=== PATIENT | male | born 1990 | race Caucasian/White ===

== ENCOUNTER 2019-10-31 22:53 | Emergency (ER) | payer OTHER ==
[2019-10-31 23:51] LABS: BLOOD UREA NITROGEN,BUN 18 mg/dL (7.0-18.0); CARBON DIOXIDE,CO2 19.8 mmol/L (21.0-32.0); CHLORIDE,CL 104 mmol/L (98-107); GLUCOSE RANDOM 87 mg/dL (74-106); SODIUM,NA 141 mmol/L (136-148)
[2019-11-01] MEDS ORDERED: Iopamidol 755 Mg/ML 100 ML Bottle IVPUSH ONE (00:12)
--- NOTE | 2019-11-01 00:49 | CT ---
INDICATION: Shortness of breath, syncope TECHNIQUE: CT chest pulmonary PE protocol acquired with 100 cc Isovue 370 IV contrast. COMPARISON: None FINDINGS: Cardiovascular structures: Exam is limited by patient body habitus. No large central or segmental pulmonary embolism is seen. The subsegmental branches of the pulmonary artery cannot be adequately evaluated with this exam. Heart size is normal. No sign of aneurysm in the thoracic aorta. Mediastinum and meg: No mass or adenopathy. Lungs: Diffuse ground-glass opacities throughout the lungs. Pleura and pericardium: No effusions. Chest wall and axilla: No mass or adenopathy. Upper abdomen: Status post gastric sleeve procedure. The spleen measures 15.0 cm in length Bones: No significant findings. IMPRESSION: Exam is limited by patient body habitus. No large central or segmental pulmonary embolism is seen. The subsegmental branches of the pulmonary artery cannot be adequately evaluated with this exam. Diffuse ground-glass opacities may represent pneumonia. Status post gastric sleeve procedure. Splenomegaly. Please note that all CT scans at this facility use dose modulation, iterative reconstruction, and/or weight-based dosing when appropriate to reduce radiation dose to as low as reasonably achievable. Dictated by Kayy Robledo MD @ Nov 01 2019 12:39AM Signed by Dr. Kayy Robledo @ Nov 01 2019 12:47AM
--- NOTE | 2019-11-01 01:34 | EDM.PDOC ---
ED [facility] GENERAL MEDICAL PROBLEM - General Chief Complaint: Syncope Stated Complaint: FELL UNCONSCIOUS Time Seen by Provider: 10/31/19 23:30 Source of Information: Reports: Patient, Family History Limitations: Reports: No Limitations - History of Present Illness INITIAL COMMENTS - FREE TEXT/NARRATIVE: Patient is a 29-year-old male with past medical history of morbid obesity and is status post gastric sleeve surgery 10 days ago. Reports syncopal episode while showering, prior to arrival. Patient reports feeling dizzy for 2 minutes before falling to the ground. Patient states he lost consciousness for 1 minute and then woke up without any confusion, headache, vomiting. Patient states he may have struck his head however he is unsure. Patient is currently without any symptoms. Patient denies any abdominal pain, nausea, vomiting. Patient reports compliance with dietary regimen prescribed by surgeon. Patient denies any chest pain, shortness of breath, history of cardiovascular disease. Patient has no fevers or recent illnesses. In addition to that documented in the HPI above, the additional ROS was obtained : Constitutional: Denies fevers or chills Eyes: Denies vision changes ENMT: Denies sore throat CV: Denies chest pain Resp: Denies SOB GI: Denies vomiting or diarrhea : Denies painful urination MSK: Denies recent trauma Skin: Denies new rashes Neuro: Denies new numbness or tingling or weakness Endocrine: Denies unexpected weight loss Heme: Denies bleeding disorders I have reviewed the triage vital signs Const: Well nourished, well developed, appears stated age Eyes: PERRL, no conjunctival injection HENT: NCAT, Neck supple without meningismus . Head is atraumatic normocephalic. CV: RRR, Warm, well-perfused extremities RESP: CTAB, Unlabored respiratory effort GI: soft, non-tender, non-distended, no masses. Surgical site and incisions well-healed MSK: Right calf tenderness without swelling. No gross deformities appreciated Skin: Warm, dry. 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 Sensation and motor function of extremities grossly intact. Psych: Appropriate mood and affect - Related Data Allergies Allergy/AdvReac Type Severity Reaction Status Date / Time No Known Allergies Allergy Verified 10/31/19 23:00 Home Meds: Home Meds Pantoprazole [ProTONIX] 40 mg PO DAILY 10/31/19 [History] allopurinoL [Zyloprim] 300 mg PO ASDIRECTED 10/31/19 [History] Past Medical History HEENT History: Reports: None Cardiovascular History: Reports: None Respiratory History: Reports: None Gastrointestinal History: Reports: None Genitourinary History: Reports: None Musculoskeletal History: Reports: None Neurological History: Reports: None Psychiatric History: Reports: Depression Endocrine/Metabolic History: Reports: Obesity/BMI 30+ Hematologic History: Reports: None Immunologic History: Reports: None Oncologic (Cancer) History: Reports: None Dermatologic History: Reports: None - Infectious Disease History Infectious Disease History: Reports: Chicken Pox - Past Surgical History Head Surgeries/Procedures: Reports: None HEENT Surgical History: Reports: None Respiratory Surgical History: Reports: None GI Surgical History: Reports: Bariatric Procedure Social & Family History - Family History HEENT: Reports: None Cardiac: Reports: None Endocrine/Metabolic: Reports: Diabetes, type II - Tobacco Use Smoking Status *Q: Heavy Tobacco Smoker Years of Tobacco use: 11 Packs/Tins Daily: 0.3 - Recreational Drug Use Recreational Drug Use: No - Living Situation & Occupation Living situation: Reports: Occupation: Employed ED ROS GENERAL - Review of Systems Review Of Systems: See Below ED EXAM, GENERAL - Physical Exam Exam: See Below Course - Vital Signs Last Recorded V/S: Last Vital Signs Temp 36.8 C 10/31/19 22:58 Pulse 76 11/01/19 00:32 Resp 16 11/01/19 00:32 BP 109/71 11/01/19 00:32 Pulse Ox 98 11/01/19 00:32 - Orders/Labs/Meds Orders: Active Orders 24 hr Category Date Time Status Blood Glucose Check, Bedside [RC] ONETIME Care 10/31/19 23:00 Active EKG 12 Lead [EKG Documentation Completion] [RC] STAT Care 10/31/19 23:11 Active Labs: Laboratory Tests 10/31/19 10/31/19 10/31/19 Range/Units 23:00 23:00 23:00 WBC 9.91 (4.0-11.0) K/uL RBC 5.45 (4.50-5.90) M/uL Hgb 16.9 (13.0-17.0) g/dL Hct 49.4 (38.0-50.0) % MCV 90.6 (80.0-98.0) fL MCH 31.0 (27.0-32.0) pg MCHC 34.2 (31.0-37.0) g/dL RDW Std Deviation 43.1 (28.0-62.0) fl RDW Coeff of Soraida 13 (11.0-15.0) % Plt Count 226 (150-400) K/uL MPV 11.00 (7.40-12.00) fL Neut % (Auto) 56.2 (48.0-80.0) % Lymph % (Auto) 32.5 (16.0-40.0) % Gibson % (Auto) 9.0 (0.0-15.0) % Eos % (Auto) 2.1 (0.0-7.0) % Baso % (Auto) 0.2 (0.0-1.5) % Neut # (Auto) 5.6 (1.4-5.7) K/uL Lymph # (Auto) 3.2 H (0.6-2.4) K/uL Gibson # (Auto) 0.9 H (0.0-0.8) K/uL Eos # (Auto) 0.2 (0.0-0.7) K/uL Baso # (Auto) 0.0 (0.0-0.1) K/uL Nucleated RBC % 0.0 /100WBC Nucleated RBCs # 0 K/uL INR 1.07 Sodium 141 (136-148) mmol/L Potassium 4.0 (3.5-5.1) mmol/L Chloride 104 (98-107) mmol/L Carbon Dioxide 19.8 L (21.0-32.0) mmol/L BUN 18 (7.0-18.0) mg/dL Creatinine 1.0 (0.8-1.3) mg/dL Est Cr Clr Drug Dosing 109.98 mL/min Estimated GFR (MDRD) > 60.0 ml/min Glucose 87 (74-106) mg/dL Calcium 10.1 (8.5-10.1) mg/dL Total Bilirubin 0.8 (0.2-1.0) mg/dL AST 32 (15-37) IU/L ALT 115 H (14-63) IU/L Alkaline Phosphatase 70 (46-116) U/L Troponin I < 0.050 (0.000-0.056) ng/mL Total Protein 8.8 H (6.4-8.2) g/dL Albumin 4.7 (3.4-5.0) g/dL Globulin 4.1 H (2.6-4.0) g/dL Albumin/Globulin Ratio 1.2 (0.9-1.6) Meds: Medications Discontinued Medications Generic Name Dose Route Start Last Admin Trade Name Freq PRN Reason Stop Dose Admin Iopamidol 100 ml 11/01/19 00:12 Isovue-370 (76%) IVPUSH 11/01/19 00:13 ONETIME ONE Departure - Departure Time of Disposition: :31 Disposition: Home, Self-Care 01 Condition: Good Clinical Impression: Syncope Instructions: Syncope, [id number] Referrals: John Vega MD [Primary Care Provider] - Forms: ED Department Discharge Sepsis Event Note - Evaluation Sepsis Screening Result: No Definite Risk - Focused Exam Vital Signs: Vital Signs Temp Pulse Resp BP Pulse Ox 11/01/19 00:32 76 16 109/71 98 10/31/19 22:58 36.8 C 86 18 149/77 H 97 Date Exam was Performed: 11/01/19 Time Exam was Performed: :28 - My Orders Last 24 Hours: My Active Orders 10/31/19 23:00 Blood Glucose Check, Bedside [RC] ONETIME 10/31/19 23:11 EKG 12 Lead [EKG Documentation Completion] [RC] STAT - Assessment/Plan Last 24 Hours: My Active Orders 10/31/19 23:00 Blood Glucose Check, Bedside [RC] ONETIME 10/31/19 23:11 EKG 12 Lead [EKG Documentation Completion] [RC] STAT Assessment:: Patient is a 29-year-old male presenting with a chief complaint of syncope. Patient had no high risk features as the etiology of this syncope. The emergency department, patient vital signs within normal limits. Patient's EKG demonstrates normal sinus rhythm. However, he did demonstrate [id number]. Patient' s physical exam does not demonstrate any evidence of major head trauma and he does not have any symptoms concerning for major head trauma. Therefore, CT scan of the head was deferred. Patient's fingerstick and labs were within normal limits. Patient had CT Ellen of the chest to rule out pulmonary embolism. CT of the chest was negative. CT of the chest did demonstrate some findings concerning for pneumonia. However, patient does not have any symptoms of pneumonia. Patient educated on these findings and instructed to follow-up with these findings as an outpatient. At this point, major life-threatening cause of syncope have been ruled out. Likely cause of syncope is dehydration versus idiopathic. Other considerations were made for cardiac arrhythmia and pulmonary embolism. Patient instructed that he may need a Holter monitor by cardiology however this will be determined after evaluation by his PCP. Patient given strict return precautions and will follow-up as an outpatient.
[2019-11-01 02:28] VITALS: BP 136/78; PULSE 68
[2019-11-01] MEDS ORDERED: Iopamidol 755 MG/ML 200 ML Multipack Bottle IVPUSH ONE (05:48)
== END 2019-11-01 01:46 | disposition home or self-care (01) ==
LOC: MW.ED 22:53
DX: R55 Syncope and collapse (principal); F17.210 Nicotine dependence, cigarettes, uncomplicated; Z79.899 Other long term (current) drug therapy
CPT/HCPCS: 36415; 71275; 80053; 84484; 85025; 85610; 93005; 99284; Q9967

== ENCOUNTER 2020-01-17 19:44 | Emergency (ER) | payer OTHER ==
[2020-01-17 20:02] VITALS: BP 128/80; PULSE 81
[2020-01-17] MEDS ORDERED: Ketorolac 60 MG/2 ML SDV IM ONE (20:25)
--- NOTE | 2020-01-17 20:27 | EDM.PDOC ---
ED HPI GENERAL MEDICAL PROBLEM - General Chief Complaint: Lower Extremity Injury/Pain Stated Complaint: CANNOT PUT PRESSURE ON LEFT ANKLE Time Seen by Provider: 01/17/20 20:25 Source of Information: Reports: Patient History Limitations: Reports: No Limitations - History of Present Illness INITIAL COMMENTS - FREE TEXT/NARRATIVE: HISTORY AND PHYSICAL: History of present illness: Patient is a 29-year-old male presents to the ED with complaint of left ankle pain. Patient states he has a history of gout and has had it in his left great toe and left ankle. He states he is suppose to be taking allopurinol daily and colchicine for flares but has been out of the medication. He denies any injury or trauma and denies fevers or chills and has no other complaints at this time. Review of systems: As per history of present illness and below otherwise all systems reviewed and negative. Past medical history: As per history of present illness and as reviewed below otherwise noncontributory. Surgical history: As per history of present illness and as reviewed below otherwise noncontributory. Social history: No reported history of drug or alcohol abuse. Family history: As per history of present illness and as reviewed below otherwise noncontributory. Physical exam: General: Patient sitting comfortably in no acute distress and nontoxic appearing HEENT: Atraumatic, normocephalic, pupils reactive, negative for conjunctival pallor or scleral icterus, mucous membranes moist, throat clear, neck supple, nontender, trachea midline. No meningeal signs. Lungs: Clear to auscultation, breath sounds equal bilaterally, chest nontender. Heart: S1S2, regular, negative for clicks, rubs, or overt murmur. Abdomen: Soft, nondistended, nontender. Negative for masses or hepatosplenomegaly. Negative for costovertebral tenderness. No rigidity, rebound , guarding. Pelvis: Stable nontender. Genitourinary: Deferred. Rectal: Deferred. Extremities: Mild swelling to the left lateral ankle with slight warmth to palpation. negative for cords or calf pain. Neurovascular unremarkable. Neuro: Awake, alert, oriented. Cranial nerves II through XII unremarkable. Cerebellum unremarkable. Motor and sensory unremarkable throughout. Exam nonfocal. Notes: Diagnostics: Declined x-ray or labs Therapeutics: Toradol 60mg IM Prescriptions: Colchicine Impression: Acute gout Plan: Take colchicine as prescribed Follow up with primary care provider Return to ED as needed as discussed Definitive disposition and diagnosis as appropriate pending reevaluation and review of above. Left ankle Pain Score (Numeric/FACES): 5 - Related Data Allergies Allergy/AdvReac Type Severity Reaction Status Date / Time No Known Allergies Allergy Verified 01/17/20 20:00 Home Meds: Home Meds Pantoprazole [ProTONIX] 40 mg PO DAILY 10/31/19 [History] allopurinoL [Zyloprim] 300 mg PO ASDIRECTED 10/31/19 [History] Colchicine 0.6 mg PO DAILY 7 Days #7 capsule 01/17/20 [Rx] Past Medical History HEENT History: Reports: None Cardiovascular History: Reports: None Respiratory History: Reports: None Gastrointestinal History: Reports: None Genitourinary History: Reports: None Musculoskeletal History: Reports: Gout Neurological History: Reports: None Psychiatric History: Reports: Depression Endocrine/Metabolic History: Reports: Obesity/BMI 30+ Hematologic History: Reports: None Immunologic History: Reports: None Oncologic (Cancer) History: Reports: None Dermatologic History: Reports: None - Infectious Disease History Infectious Disease History: Reports: Chicken Pox - Past Surgical History Head Surgeries/Procedures: Reports: None HEENT Surgical History: Reports: None Cardiovascular Surgical History: Reports: None Respiratory Surgical History: Reports: None GI Surgical History: Reports: Bariatric Procedure Male Surgical History: Reports: None Endocrine Surgical History: Reports: None Neurological Surgical History: Reports: None Musculoskeletal Surgical History: Reports: None Oncologic Surgical History: Reports: None Dermatological Surgical History: Reports: None Social & Family History - Family History HEENT: Reports: None Cardiac: Reports: None Endocrine/Metabolic: Reports: Diabetes, type II - Caffeine Use Caffeine Use: Reports: None - Recreational Drug Use Recreational Drug Use: No - Living Situation & Occupation Living situation: Reports: Occupation: Employed Review of Systems - Review of Systems Review Of Systems: Comprehensive ROS is negative, except as noted in HPI. ED EXAM, GENERAL - Physical Exam Exam: See Below (see dictation) Course - Vital Signs Last Recorded V/S: Last Vital Signs Temp 97.3 F 01/17/20 20:00 Pulse 81 01/17/20 20:00 Resp 18 01/17/20 20:00 BP 128/80 01/17/20 20:00 Pulse Ox 97 01/17/20 20:00 - Orders/Labs/Meds Meds: Medications Discontinued Medications Generic Name Dose Route Start Last Admin Trade Name Bell PRN Reason Stop Dose Admin Ketorolac Tromethamine 60 mg 01/17/20 20:25 Toradol IM 01/17/20 20:26 ONETIME ONE Departure - Departure Time of Disposition: 20:29 Disposition: Home, Self-Care 01 Condition: Good Clinical Impression: Acute gout - Discharge Information Referrals: PCP,None [Primary Care Provider] - Forms: ED Department Discharge Additional Instructions: The following information is given to patients seen in the emergency department who are being discharged to home. This information is to outline your options for follow-up care. We provide all patients seen in our emergency department with a follow-up referral. The need for follow-up, as well as the timing and circumstances, are variable depending upon the specifics of your emergency department visit. If you don't have a primary care physician on staff, we will provide you with a referral. We always advise you to contact your personal physician following an emergency department visit to inform them of the circumstance of the visit and for follow-up with them and/or the need for any referrals to a consulting specialist. The emergency department will also refer you to a specialist when appropriate. This referral assures that you have the opportunity for follow-up care with a specialist. All of these measure are taken in an effort to provide you with optimal care, which includes your follow-up. Under all circumstances we always encourage you to contact your private physician who remains a resource for coordinating your care. When calling for follow-up care, please make the office aware that this follow-up is from your recent emergency room visit. If for any reason you are refused follow-up, please contact the [facility] at and asked to speak to the emergency department charge nurse. [facility] [address] [place] [id number] [facility] [address] [place] [id number] Take colchicine as prescribed Follow up with primary care provider Return to ED as needed as discussed Sepsis Event Note - Evaluation Sepsis Screening Result: No Definite Risk - Focused Exam Vital Signs: Vital Signs Temp Pulse Resp BP Pulse Ox 01/17/20 20:00 97.3 F 81 18 128/80 97 Date Exam was Performed: 01/17/20 Time Exam was Performed: 20:27
== END 2020-01-17 20:58 | disposition home or self-care (01) ==
LOC: MW.ED 19:44
DX: M10.9 Gout, unspecified (principal)
CPT/HCPCS: 96372; 99283; J1885

== ENCOUNTER 2020-01-31 06:41 | Emergency (ER) | payer OTHER ==
[2020-01-31] MEDS ORDERED: Sodium Chloride 0.9% 1,000 ML IV ONE (08:05)
[2020-01-31] MEDS ORDERED: Meclizine 25 MG Tab PO ONE (08:48)
--- NOTE | 2020-01-31 08:50 | EDM.PDOC ---
ED HPI GENERAL MEDICAL PROBLEM - General Chief Complaint: General Stated Complaint: DIZZINESS Time Seen by Provider: 01/31/20 07:50 Source of Information: Reports: Patient History Limitations: Reports: No Limitations - History of Present Illness INITIAL COMMENTS - FREE TEXT/NARRATIVE: HISTORY AND PHYSICAL: History of present illness: Patient is a 29-year-old male who presents to the ED today with concern of dizziness episodes that occurred just prior to arrival to the ED. Patient states when he woke up he felt slightly dizzy so he got in the bath. Patient states when he got out of the bath he felt as if the "room was spinning." Patient states that after this he felt nauseous and had 2 episodes of vomiting. Patient states that the episode lasted a couple minutes and then resolved. Patient states that he did have a gastric sleeve done in October and since then has had a few episodes of the dizziness that he describes but states that this 1 was the most severe making him vomit. Patient denies any head injury or trauma. Patient denies any abdominal pain. Patient denies any other symptoms or concerns. Patient denies fever, chills, chest pain, shortness of breath, or cough. Denies headache, neck stiff ness, change in vision, syncope, or near syncope. Denies abdominal pain, diarrhea, constipation, or dysuria. Has not noted any blood in urine or stool. Patient has been eating and drinking appropriately. Review of systems: As per history of present illness and below otherwise all systems reviewed and negative. Past medical history: As per history of present illness and as reviewed below otherwise noncontributory. Surgical history: As per history of present illness and as reviewed below otherwise noncontributory. Social history: See social history for further information Family history: As per history of present illness and as reviewed below otherwise noncontributory. Physical exam: Exam is limited due to body habitus. General: Patient is alert, oriented, and in no acute distress. Patient laying comfortably on exam table. HEENT: Atraumatic, normocephalic, pupils equal and reactive bilaterally, negative for conjunctival pallor or scleral icterus, mucous membranes dry, TMs normal bilaterally, throat clear, neck supple, nontender, trachea midline. No drooling or trismus noted. No meningeal signs. No hot potato voice noted. Lungs: Clear to auscultation, breath sounds equal bilaterally, chest nontender. Heart: S1S2, regular rate and rhythm without overt murmur Abdomen: Obese, soft, nondistended, nontender. Negative for masses or hepatosplenomegaly. Negative for costovertebral tenderness. Pelvis: Stable nontender. Genitourinary: Deferred. Rectal: Deferred. Skin: Intact, warm, dry. No lesions or rashes noted. Extremities: Atraumatic, negative for cords or calf pain. Neurovascular unremarkable. Neuro: Awake, alert, oriented. Cranial nerves II through XII unremarkable. Cerebellum unremarkable. Motor and sensory unremarkable throughout. Exam nonfocal. Notes: HEART score 1. Low risk. Discussed importance for follow-up with a primary care provider. Voices understanding and is agreeable to plan of care. Denies any further questions or concerns at this time. Diagnostics: EKG, CBC, CMP, UA, chest x-ray, troponin, head CT, orthostatic vitals Therapeutics: NS, Meclizine Prescription: Meclizine Impression: Vertigo Dizziness Plan: 1. Take medication as prescribed. Encourage small but frequent sips of fluid to prevent dehydration. 2. Follow-up with a primary care provider as discussed. Return to the ED as needed and as discussed. Definitive disposition and diagnosis as appropriate pending reevaluation and review of above. left ankle Pain Score (Numeric/FACES): 6 - Related Data Allergies Allergy/AdvReac Type Severity Reaction Status Date / Time No Known Allergies Allergy Verified 01/31/20 06:57 Home Meds: Home Meds Pantoprazole [ProTONIX] 40 mg PO DAILY 10/31/19 [History] allopurinoL [Zyloprim] 300 mg PO ASDIRECTED 10/31/19 [History] Colchicine 0.6 mg PO DAILY 7 Days #7 capsule 01/17/20 [Rx] Meclizine [Antivert] 25 mg PO BID PRN #15 tab 01/31/20 [Rx] Past Medical History HEENT History: Reports: None Cardiovascular History: Reports: None Respiratory History: Reports: None Gastrointestinal History: Reports: None Genitourinary History: Reports: None Musculoskeletal History: Reports: Gout Neurological History: Reports: None Psychiatric History: Reports: Depression Endocrine/Metabolic History: Reports: Obesity/BMI 30+ 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 Hematologic History: Reports: None Immunologic History: Reports: None Oncologic (Cancer) History: Reports: None Dermatologic History: Reports: None - Infectious Disease History Infectious Disease History: Reports: None - Past Surgical History Head Surgeries/Procedures: Reports: None HEENT Surgical History: Reports: None Cardiovascular Surgical History: Reports: None Respiratory Surgical History: Reports: None GI Surgical History: Reports: Bariatric Procedure Male Surgical History: Reports: None Endocrine Surgical History: Reports: None Neurological Surgical History: Reports: None Musculoskeletal Surgical History: Reports: None Oncologic Surgical History: Reports: None Dermatological Surgical History: Reports: None Social & Family History - Family History Family Medical History: Noncontributory HEENT: Reports: None Cardiac: Reports: None Endocrine/Metabolic: Reports: Diabetes, type II - Caffeine Use Caffeine Use: Reports: None - Recreational Drug Use Recreational Drug Use: No - Living Situation & Occupation Living situation: Reports: Occupation: Employed ED ROS GENERAL - Review of Systems Review Of Systems: Comprehensive ROS is negative, except as noted in HPI. ED EXAM, GENERAL - Physical Exam Exam: See Below (see dictation) Course - Vital Signs Last Recorded V/S: Last Vital Signs Temp 96.8 F L 01/31/20 06:57 Pulse 82 01/31/20 09:35 Resp 15 01/31/20 09:35 BP 122/84 01/31/20 09:35 Pulse Ox 98 01/31/20 09:35 Orthostatic Blood Pressure [ 122/84 Standing] Orthostatic Blood Pressure [ 131/82 Sitting] Orthostatic Blood Pressure [ 138/73 Supine] - Orders/Labs/Meds Orders: Active Orders 24 hr Category Date Time Status EKG Documentation Completion [RC] STAT Care 01/31/20 08:05 Active Orthostatic Vital Signs [RC] ASDIRECTED Care 01/31/20 08:10 Active UA RFX KATLIN AND CULT IF INDIC [URIN] Stat Lab 01/31/20 08:05 Ordered Labs: Laboratory Tests 01/31/20 01/31/20 Range/Units 09:09 09:09 WBC 10.66 (4.0-11.0) K/uL RBC 5.26 (4.50-5.90) M/uL Hgb 16.2 (13.0-17.0) g/dL Hct 49.0 (38.0-50.0) % MCV 93.2 (80.0-98.0) fL MCH 30.8 (27.0-32.0) pg MCHC 33.1 (31.0-37.0) g/dL RDW Std Deviation 46.6 (28.0-62.0) fl RDW Coeff of Soraida 14 (11.0-15.0) % Plt Count 213 (150-400) K/uL MPV 10.90 (7.40-12.00) fL Neut % (Auto) 77.9 (48.0-80.0) % Lymph % (Auto) 11.1 L (16.0-40.0) % Rock % (Auto) 9.9 (0.0-15.0) % Eos % (Auto) 0.8 (0.0-7.0) % Baso % (Auto) 0.3 (0.0-1.5) % Neut # (Auto) 8.3 H (1.4-5.7) K/uL Lymph # (Auto) 1.2 (0.6-2.4) K/uL Rock # (Auto) 1.1 H (0.0-0.8) K/uL Eos # (Auto) 0.1 (0.0-0.7) K/uL Baso # (Auto) 0.0 (0.0-0.1) K/uL Nucleated RBC % 0.0 /100WBC Nucleated RBCs # 0 K/uL Sodium 142 (136-148) mmol/L Potassium 4.9 (3.5-5.1) mmol/L Chloride 107 (98-107) mmol/L Carbon Dioxide 26.7 (21.0-32.0) mmol/L BUN 18 (7.0-18.0) mg/dL Creatinine 1.2 (0.8-1.3) mg/dL Est Cr Clr Drug Dosing 91.65 mL/min Estimated GFR (MDRD) > 60.0 ml/min Glucose 85 (74-106) mg/dL Calcium 9.6 (8.5-10.1) mg/dL Total Bilirubin 0.6 (0.2-1.0) mg/dL AST 23 (15-37) IU/L ALT 50 (14-63) IU/L Alkaline Phosphatase 82 (46-116) U/L Troponin I < 0.050 (0.000-0.056) ng/mL Total Protein 7.9 (6.4-8.2) g/dL Albumin 4.2 (3.4-5.0) g/dL Globulin 3.7 (2.6-4.0) g/dL Albumin/Globulin Ratio 1.1 (0.9-1.6) Meds: Medications Discontinued Medications Generic Name Dose Route Start Last Admin Trade Name Freq PRN Reason Stop Dose Admin Sodium Chloride 1,000 mls @ 999 mls/hr 01/31/20 08:05 01/31/20 09:33 Normal Saline IV 01/31/20 09:05 999 mls/hr BOLUS ONE Administration Meclizine HCl 25 mg 01/31/20 08:48 01/31/20 09:32 Antivert PO 01/31/20 08:49 25 mg ONETIME ONE Administration Departure - Departure Time of Disposition: 10:07 Disposition: Home, Self-Care 01 Clinical Impression: Vertigo, Dizziness - Discharge Information Prescriptions: Meclizine [Antivert] 25 mg PO BID PRN #15 tab PRN Reason: Dizziness Referrals: John Vega MD [Primary Care Provider] - Forms: ED Department Discharge Additional Instructions: The following information is given to patients seen in the emergency department who are being discharged to home. This information is to outline your options for follow-up care. We provide all patients seen in our emergency department with a follow-up referral. The need for follow-up, as well as the timing and circumstances, are variable depending upon the specifics of your emergency department visit. If you don't have a primary care physician on staff, we will provide you with a referral. We always advise you to contact your personal physician following an emergency department visit to inform them of the circumstance of the visit and for follow-up with them and/or the need for any referrals to a consulting specialist. The emergency department will also refer you to a specialist when appropriate. This referral assures that you have the opportunity for follow-up care with a specialist. All of these measure are taken in an effort to provide you with optimal care, which includes your follow-up. Under all circumstances we always encourage you to contact your private physician who remains a resource for coordinating your care. When calling for follow-up care, please make the office aware that this follow-up is from your recent emergency room visit. If for any reason you are refused follow-up, please contact the [facility] Emergency Department at and asked to speak to the emergency department charge nurse. [facility] Primary [facility] [address] [place] [address] [facility] [address] [place] [id number] . Take medication as prescribed. Encourage small but frequent sips of fluid to prevent dehydration. 2. Follow-up with a primary care provider as discussed. Return to the ED as needed and as discussed. Sepsis Event Note - Evaluation Sepsis Screening Result: No Definite Risk - Focused Exam Vital Signs: Vital Signs Temp Pulse Resp BP Pulse Ox 01/31/20 09:35 82 15 122/84 98 01/31/20 07:50 76 15 110/54 L 98 01/31/20 07:20 74 17 110/60 97 01/31/20 06:57 96.8 F L 74 18 116/62 98 Date Exam was Performed: 01/31/20 Time Exam was Performed: 10:06 - My Orders Last 24 Hours: My Active Orders 01/31/20 08:05 EKG Documentation Completion [RC] STAT UA RFX KATLIN AND CULT IF INDIC [URIN] Stat 01/31/20 08:10 Orthostatic Vital Signs [RC] ASDIRECTED - Assessment/Plan Last 24 Hours: My Active Orders 01/31/20 08:05 EKG Documentation Completion [RC] STAT UA RFX KATLIN AND CULT IF INDIC [URIN] Stat 01/31/20 08:10 Orthostatic Vital Signs [RC] ASDIRECTED
[2020-01-31 09:41] LABS: BLOOD UREA NITROGEN,BUN 18 mg/dL (7.0-18.0); CARBON DIOXIDE,CO2 26.7 mmol/L (21.0-32.0); CHLORIDE,CL 107 mmol/L (98-107); GLUCOSE RANDOM 85 mg/dL (74-106); POTASSIUM,K 4.9 mmol/L (3.5-5.1); SODIUM,NA 142 mmol/L (136-148)
--- NOTE | 2020-01-31 09:47 | CT ---
INDICATION: Dizziness, vertiginous syndrome. TECHNIQUE: CT head without contrast. COMPARISON: None FINDINGS: No acute intracranial hemorrhage, mass effect or midline shift is identified. A 15 millimeter rounded soft tissue density in the inferior right maxillary sinus is partially visualized and most compatible to a retention cyst. The visualized paranasal sinuses and mastoid air cells are otherwise normally aerated. No temporal bone abnormality is seen. IMPRESSION: 1. No acute intracranial hemorrhage/abnormality. 2. Right maxillary sinus retention cyst. Please note that all CT scans at this facility use dose modulation, iterative reconstruction, and/or weight-based dosing when appropriate to reduce radiation dose to as low as reasonably achievable. Dictated by Pino Cardenas MD @ Jan 31 2020 9:40AM Signed by Dr. Pino Cardenas @ Jan 31 2020 9:46AM
--- NOTE | 2020-01-31 09:50 | CR ---
INDICATION: Dizziness, cough TECHNIQUE: Chest 1 view. COMPARISON: None FINDINGS: Cardiovascular and mediastinum: Heart size and vasculature are normal in caliber and appearance. Mediastinum is within normal limits. Lungs and pleural space: Lungs are clear. No sign of infiltrate or mass. No sign of pleural effusion. No pneumothorax. Bones and soft tissues: No significant findings. IMPRESSION: Unremarkable chest. Dictated by Pino Cardenas MD @ Jan 31 2020 9:39AM Signed by Dr. Pino Cardenas @ Jan 31 2020 9:47AM
[2020-01-31 11:44] VITALS: BP 124/72; PULSE 58
== END 2020-01-31 11:45 | disposition home or self-care (01) ==
LOC: MW.ED 06:41
DX: R42 Dizziness and giddiness (principal); M10.9 Gout, unspecified; E66.9 Obesity, unspecified; Z68.43 Body mass index [BMI] 50.0-59.9, adult; Z79.899 Other long term (current) drug therapy
CPT/HCPCS: 36415; 70450; 71045; 80053; 82962; 84484; 85025; 93005; 96360; 99284; A9270; J7030

== ENCOUNTER 2020-03-07 16:45 | Emergency (ER) | payer OTHER ==
[2020-03-07] MEDS ORDERED: Ketorolac 60 MG/2 ML SDV IM ONE (17:23)
[2020-03-07] MEDS ORDERED: predniSONE 10 MG Tab PO ONE (17:24)
[2020-03-07] MEDS ORDERED: Colchicine 0.6 MG Tab PO ONE (17:24)
--- NOTE | 2020-03-07 17:35 | EDM.PDOC ---
ED HPI GENERAL MEDICAL PROBLEM - General Chief Complaint: Lower Extremity Injury/Pain Stated Complaint: GOUT IN RIGHT FOOT Time Seen by Provider: 03/07/20 17:18 Source of Information: Reports: Patient History Limitations: Reports: No Limitations - History of Present Illness INITIAL COMMENTS - FREE TEXT/NARRATIVE: HISTORY AND PHYSICAL: History of present illness: Patient is a 29-year-old male who presents to the emergency room today with complaints of gout in his right great toe and requesting medication refill. He states he has a longstanding history of gout and typically takes allopurinol daily. He has been out of this medication for a while as he has not been able to get in to his primary care provider. Typically he has gotten flares in his left great toe, but today he has pain and tenderness to the right great toe. Recent injury or trauma. Patient denies any fever, chills, headache, change in vision, syncope or near syncope. Denies any chest pain, back pain, shortness of breath or cough. Denies any abdominal pain, nausea, vomiting, diarrhea, constipation or dysuria. Has not noted any blood in urine or stool. Patient has been eating and drinking appropriately. Review of systems: As per history of present illness and below otherwise all systems reviewed and negative. Past medical history: As per history of present illness and as reviewed below otherwise noncontributory. Surgical history: As per history of present illness and as reviewed below otherwise noncontributory. Social history: See social history for further information Family history: As per history of present illness and as reviewed below otherwise noncontributory. Physical exam: General: Well-developed and well-nourished 29-year-old male. Alert and oriented. Nontoxic-appearing and in no acute distress. HEENT: Atraumatic, normocephalic, pupils equal and reactive bilaterally, negative for conjunctival pallor or scleral icterus, mucous membranes moist, nontender, trachea midline. No drooling or trismus noted. No meningeal signs. No hot potato voice noted. Lungs: Clear to auscultation, breath sounds equal bilaterally. Heart: S1S2, regular rate and rhythm without overt murmur Abdomen: Soft, obese, nontender. Skin: SEE EXTREMITY. Otherwise skin is intact, warm, dry. No lesions or rashes noted. Extremities: Atraumatic, moves all extremities per self without difficulty or deficits, negative for cords or calf pain. Redness, tenderness of the right great toe. Strong pedal and pretibial pulse. Cap refill less than 3 seconds. Neurovascular unremarkable. Neuro: Awake, alert, oriented. Cranial nerves II through XII unremarkable. Cerebellum unremarkable. Motor and sensory unremarkable throughout. Exam nonfocal. Notes: Patient declines wanting lab work at this time. Will refill his allopurinol and give colchicine here as pharmacy is closed. Does request something for discomfort, IM given. Supportive care measures were reviewed and discussed. Voices understanding and is agreeable to plan of care. Denies any further questions or concerns at this time. Diagnostics: Declines Therapeutics: Toradol IM, Colchine Prescription: Allopurinol Prednisone Diclofenac Impression: Encounter for medication refill Gout flare Plan: 1. Medications as directed 2. Make sure you follow-up with your primary care provider for further refills. 3. Return to the ED as needed and as discussed. Definitive disposition and diagnosis as appropriate pending reevaluation and review of above. 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 Hematologic History: Reports: None Immunologic History: Reports: None Oncologic (Cancer) History: Reports: None Dermatologic History: Reports: None - Infectious Disease History Infectious Disease History: Reports: None - Past Surgical History Head Surgeries/Procedures: Reports: None HEENT Surgical History: Reports: None Cardiovascular Surgical History: Reports: None Respiratory Surgical History: Reports: None GI Surgical History: Reports: Bariatric Procedure Male Surgical History: Reports: None Endocrine Surgical History: Reports: None Neurological Surgical History: Reports: None Musculoskeletal Surgical History: Reports: None Oncologic Surgical History: Reports: None Dermatological Surgical History: Reports: None Social & Family History - Family History Family Medical History: Noncontributory HEENT: Reports: None Cardiac: Reports: None Endocrine/Metabolic: Reports: Diabetes, type II - Tobacco Use Smoking Status *Q: Never Smoker - Caffeine Use Caffeine Use: Reports: None - Recreational Drug Use Recreational Drug Use: No - Living Situation & Occupation Living situation: Reports: Occupation: Employed Review of Systems - Review of Systems Review Of Systems: Comprehensive ROS is negative, except as noted in HPI. ED EXAM, GENERAL - Physical Exam Exam: See Below (See dictation) Course - Vital Signs Last Recorded V/S: Last Vital Signs Temp 98.3 F 03/07/20 17:22 Pulse 98 03/07/20 17:22 Resp 18 03/07/20 17:22 BP 163/108 H 03/07/20 17:22 Pulse Ox 97 03/07/20 17:22 - Orders/Labs/Meds Meds: Medications Discontinued Medications Generic Name Dose Route Start Last Admin Trade Name Freq PRN Reason Stop Dose Admin Colchicine 1.8 mg 03/07/20 17:24 Colcrys PO 03/07/20 17:25 ONETIME ONE Ketorolac Tromethamine 60 mg 03/07/20 17:23 Toradol IM 03/07/20 17:24 ONETIME ONE Prednisone 30 mg 03/07/20 17:24 Prednisone PO 03/07/20 17:25 ONETIME ONE Departure - Departure Time of Disposition: 17:35 Disposition: Home, Self-Care 01 Clinical Impression: Encounter for medication refill Gout flare Qualifiers: Gout site: toe Gout etiology: unspecified cause Laterality: right Qualified Code(s): M10.9 - Gout, unspecified - Discharge Information Instructions: Low-Purine Eating Plan Referrals: John Vega MD [Primary Care Provider] - Additional Instructions: The following information is given to patients seen in the emergency department who are being discharged to home. This information is to outline your options for follow-up care. We provide all patients seen in our emergency department with a follow-up referral. The need for follow-up, as well as the timing and circumstances, are variable depending upon the specifics of your emergency department visit. If you don't have a primary care physician on staff, we will provide you with a referral. We always advise you to contact your personal physician following an emergency department visit to inform them of the circumstance of the visit and for follow-up with them and/or the need for any referrals to a consulting specialist. The emergency department will also refer you to a specialist when appropriate. This referral assures that you have the opportunity for follow-up care with a specialist. All of these measure are taken in an effort to provide you with optimal care, which includes your follow-up. Under all circumstances we always encourage you to contact your private physician who remains a resource for coordinating your care. When calling for follow-up care, please make the office aware that this follow-up is from your recent emergency room visit. If for any reason you are refused follow-up, please contact the [facility] Emergency Department at and asked to speak to the emergency department charge nurse. [facility] Primary Care [address] [place] [address] [id number] [address] [id number] 1. Medications as directed 2. Make sure you follow-up with your primary care provider for further refills. 3. Return to the ED as needed and as discussed. Sepsis Event Note - Evaluation Sepsis Screening Result: No Definite Risk - Focused Exam Vital Signs: Vital Signs Temp Pulse Resp BP Pulse Ox 03/07/20 17:22 98.3 F 98 18 163/108 H 97 Date Exam was Performed: 03/07/20 Time Exam was Performed: 17:30
[2020-03-07 19:35] VITALS: BP 144/86; PULSE 76
== END 2020-03-07 18:23 | disposition home or self-care (01) ==
LOC: MW.ED 16:45
DX: M10.9 Gout, unspecified (principal); E66.9 Obesity, unspecified; Z79.899 Other long term (current) drug therapy; Z68.43 Body mass index [BMI] 50.0-59.9, adult
CPT/HCPCS: 96372; 99283; A9270; J1885

== ENCOUNTER 2020-12-01 12:15 | Emergency (ER) | payer OTHER ==
--- NOTE | 2020-12-01 13:15 | EDM.PDOC ---
ED HPI GENERAL MEDICAL PROBLEM - General Chief Complaint: General Stated Complaint: FALL Time Seen by Provider: 12/01/20 13:12 Source of Information: Reports: Patient History Limitations: Reports: No Limitations - History of Present Illness INITIAL COMMENTS - FREE TEXT/NARRATIVE: 30-year-old male with history of sleep apnea on CPAP, gastric sleeve, presents with postconcussive syndrome. He fell at work at 0900 today and hit the back of his head on grass. He was cutting up an I-beam and the I-beam broke and he fell backwards and hit the back of his head. Denies LOC and blurry vision or focal numbness or weakness. He does admit to a diffuse headache rated 5/10, nonradiating, associated with nausea and dizziness and neck pain. ROS: A 10-point review of systems, other than pertinent positives and negatives as stated per HPI, is otherwise negative Past medical history: No additional pertinent history Past Surgical history: No additional pertinent history Social history: No additional pertinent history Family history: No additional pertinent history PHYSICAL EXAM General: AOx4, GCS = 15, No distress HEENT: dry mucous membrane, NC/AT Neck: supple, no meningismus, no Kernig or Brudzinski Cardiac: S1S2 RRR Respiratory: CTAB, no crackles or rales, no wheezing Abdomen: Soft, nontender, no rebound or guarding, nondistended, no pulsatile mass. Back: nontender Musculoskeletal: NVI distally, no deformity Neuro: No focal deficits, CN 2 - 12 WNL. head Pain Score (Numeric/FACES): 5 - Related Data Allergies Allergy/AdvReac Type Severity Reaction Status Date / Time No Known Allergies Allergy Verified 12/01/20 12:39 Home Meds: Home Meds allopurinoL [Zyloprim] 300 mg PO DAILY 10/31/19 [History] Colchicine 1 tab PO DAILY 12/01/20 [History] FLUoxetine [PROzac] 40 mg PO DAILY 12/01/20 [History] Multivitamin 1 tab PO DAILY 12/01/20 [History] Past Medical History HEENT History: Reports: None Cardiovascular History: Reports: None Respiratory History: Reports: None Gastrointestinal History: Reports: None Genitourinary History: Reports: None Musculoskeletal History: Reports: Gout Neurological History: Reports: None Psychiatric History: Reports: Depression Endocrine/Metabolic History: Reports: Obesity/BMI 30+ Insulin Pump Model and Lath Tier: None Hematologic History: Reports: None Immunologic History: Reports: None Oncologic (Cancer) History: Reports: None Dermatologic History: Reports: None - Infectious Disease History Infectious Disease History: Reports: None - Past Surgical History Head Surgeries/Procedures: Reports: None HEENT Surgical History: Reports: None Cardiovascular Surgical History: Reports: None Respiratory Surgical History: Reports: None GI Surgical History: Reports: Bariatric Procedure Male Surgical History: Reports: None Endocrine Surgical History: Reports: None Neurological Surgical History: Reports: None Musculoskeletal Surgical History: Reports: None Oncologic Surgical History: Reports: None Dermatological Surgical History: Reports: None Social & Family History - Family History Family Medical History: No Pertinent Family History HEENT: Reports: None Cardiac: Reports: None Endocrine/Metabolic: Reports: Diabetes, type II - Tobacco Use Tobacco Use Status *Q: Current Every Day Tobacco User Years of Tobacco use: 12 Packs/Tins Daily: 0.3 - Caffeine Use Caffeine Use: Reports: None - Recreational Drug Use Recreational Drug Use: No - Living Situation & Occupation Living situation: Reports: Occupation: Employed ED ROS GENERAL - Review of Systems Review Of Systems: See Below (see dictation) ED EXAM, GENERAL - Physical Exam Exam: See Below (see dictation) Course - Vital Signs Last Recorded V/S: Last Vital Signs Temp 98.1 F 12/01/20 12:35 Pulse 69 12/01/20 14:31 Resp 16 12/01/20 14:31 BP 148/99 H 12/01/20 14:31 Pulse Ox 100 12/01/20 14:31 - Orders/Labs/Meds Meds: Medications Discontinued Medications Generic Name Dose Route Start Last Admin Trade Name Freq PRN Reason Stop Dose Admin Diphenhydramine HCl 50 mg 12/01/20 13:58 12/01/20 14:28 Benadryl IM 12/01/20 13:59 50 mg ONETIME ONE Administration Metoclopramide HCl 10 mg 12/01/20 13:58 12/01/20 14:28 Reglan IM 12/01/20 13:59 10 mg ONETIME ONE Administration - Re-Assessments/Exams Free Text/Narrative Re-Assessment/Exam: 12/01/20 15:24 After IM ReglanCamdenadryl in the ER, his headache resolved and he is currently stable for discharge. I performed a repeat exam and did not appreciate new abnormal findings. Patient exhibits normal vital signs and has a normal gait on road test. I advised the patient to return to the ER for reevaluation if symptoms worsened, including fever, worsening pain, or any other worrisome symptoms. I instructed the patient to follow up with their PCP within 2-3 days. MEDICAL DECISION MAKING: I reviewed the patients past medical records, lab and radiographic findings. I discussed the case with the patient. My differential di agnosis included: Postconcussive syndrome, ICH, skull fracture. Patients symptoms are concerning for post concussive syndrome. He is instructed to refrain from sporting activities or contact sports, and follow up with neurology as soon as possible. His repeat neurological exam was normal, with no cerebellar signs. His cranial exam was unremarkable, he had a negative Romberg and nml gait. Departure - Departure Time of Disposition: 15:25 Disposition: Home, Self-Care 01 Condition: Good Clinical Impression: Post concussion syndrome - Discharge Information *PRESCRIPTION DRUG MONITORING PROGRAM REVIEWED*: Not Applicable *COPY OF PRESCRIPTION DRUG MONITORING REPORT IN PATIENT [place]: Not Applicable Instructions: Post-Concussion Syndrome Referrals: John Vega MD [Primary Care Provider] - Forms: ED Department Discharge Additional Instructions: The need for follow-up, as well as the timing and circumstances, are variable depending upon the specifics of your emergency department visit. If you don't have a primary care physician on staff, we will provide you with a referral. We always advise you to contact your personal physician following an emergency department visit to inform them of the circumstance of the visit and for follow-up with them and/or the need for any referrals to a consulting specialist. The emergency department will also refer you to a specialist when appropriate. This referral assures that you have the opportunity for follow-up care with a specialist. All of these measure are taken in an effort to provide you with optimal care, which includes your follow-up. Under all circumstances we always encourage you to contact your private physician who remains a resource for coordinating your care. When calling for follow-up care, please make the office aware that this follow-up is from your recent emergency room visit. If for any reason you are refused follow-up, please contact the [facility] Emergency Department at and asked to speak to the emergency department charge nurse. If you do not have a primary care doctor, please follow up with the clinics below within 3-5 days. [facility] - Neurology [address], [address] [place] [address] Sepsis Event Note (ED) - Evaluation Sepsis Screening Result: No Definite Risk - Focused Exam Vital Signs: Vital Signs Temp Pulse Resp BP Pulse Ox 12/01/20 14:31 69 16 148/99 H 100 12/01/20 12:35 98.1 F 70 18 120/76 96
[2020-12-01] MEDS ORDERED: Metoclopramide 10 MG/2 ML SDV IM ONE (13:58)
[2020-12-01] MEDS ORDERED: diphenhydrAMINE 50 MG/ML SDV IM ONE (13:58)
--- NOTE | 2020-12-01 15:01 | CT ---
INDICATION: Fall with head trauma TECHNIQUE: CT cervical spine without contrast. COMPARISON: None FINDINGS: Vertebral alignment: Alignment is normal. Vertebrae: There are no fractures or suspicious bony lesions. Discs and facet joints: Disc spaces and facets are within normal limits. Extraspinal findings: Prevertebral soft tissues, visualized airway, and visualized lungs are unremarkable. IMPRESSION: Unremarkable cervical spine CT. Please note that all CT scans at this facility use dose modulation, iterative reconstruction, and/or weight-based dosing when appropriate to reduce radiation dose to as low as reasonably achievable. Dictated by Kayy Robledo MD @ Dec 01 2020 2:56PM Signed by Dr. Kayy Robledo @ Dec 01 2020 2:59PM
--- NOTE | 2020-12-01 15:03 | CT ---
INDICATION: Fall, hit back of head TECHNIQUE: CT head without contrast. COMPARISON: None FINDINGS: CSF spaces: Within normal limits for age. Brain parenchyma: The lobo-white differentiation is normal. No sign of mass, hemorrhage, or midline shift. Skull base and calvarium: The visualized paranasal sinuses and mastoid air cells demonstrate no acute or significant findings. The visualized orbits are grossly unremarkable. No skull fractures. IMPRESSION: Unremarkable noncontrast head CT. Please note that all CT scans at this facility use dose modulation, iterative reconstruction, and/or weight-based dosing when appropriate to reduce radiation dose to as low as reasonably achievable. Dictated by Kayy Robledo MD @ Dec 01 2020 2:59PM Signed by Dr. Kayy Robledo @ Dec 01 2020 3:02PM
[2020-12-01 15:35] VITALS: BP 119/73; PULSE 62
== END 2020-12-01 15:35 | disposition home or self-care (01) ==
LOC: MW.ED 12:15
DX: F07.81 Postconcussional syndrome (principal); E66.9 Obesity, unspecified; Z68.42 Body mass index [BMI] 45.0-49.9, adult; Z72.0 Tobacco use; Z79.899 Other long term (current) drug therapy
CPT/HCPCS: 70450; 72125; 96372; 99283; J1200; J2765

== ENCOUNTER 2022-01-21 18:25 | Emergency (ER) | payer SELFPAY ==
[2022-01-21] MEDS ORDERED: Ketorolac 30 MG/ML SDV IM ONE (19:12)
[2022-01-21] MEDS ORDERED: Ondansetron 4 MG Tab.DIS PO ONE (19:12)
[2022-01-21 19:54] LABS: CORONAVIRUS COVID-19 NAA POSITIVE (NEGATIVE); INFLUENZA A NAA NEGATIVE (NEGATIVE); INFLUENZA B NAA NEGATIVE (NEGATIVE)
[2022-01-21 20:29] VITALS: BP 143/93; PULSE 108
== END 2022-01-21 20:28 | disposition home or self-care (01) ==
LOC: MW.ED 18:25
DX: U07.1 COVID-19 (principal); E66.9 Obesity, unspecified; Z68.43 Body mass index [BMI] 50.0-59.9, adult; Z72.0 Tobacco use
CPT/HCPCS: 0240U; 96372; 99283; 99284; A9270-GY; J1885

== ENCOUNTER 2022-03-20 15:45 | Emergency (ER) | payer SELFPAY ==
[2022-03-20] MEDS ORDERED: Colchicine 0.6 MG Tab PO STA (19:49)
[2022-03-20] MEDS ORDERED: Acetaminophen/oxyCODONE 325-10 MG Tab PO STA (19:50)
[2022-03-20 20:06] VITALS: BP 153/102; PULSE 88
== END 2022-03-20 20:12 | disposition home or self-care (01) ==
LOC: MW.ED 15:45
DX: M10.9 Gout, unspecified (principal); E66.9 Obesity, unspecified; Z68.43 Body mass index [BMI] 50.0-59.9, adult; Z79.899 Other long term (current) drug therapy
CPT/HCPCS: 99283; A9270

== ENCOUNTER 2023-04-15 01:27 | Emergency (ER) | payer SELFPAY ==
[2023-04-15] MEDS ORDERED: Acetaminophen/oxyCODONE 325-5 MG Tab PO ONE (01:45)
[2023-04-15 01:58] VITALS: BP 156/98; PULSE 95
== END 2023-04-15 03:26 | disposition home or self-care (01) ==
LOC: MW.ED 01:27
DX: M10.9 Gout, unspecified (principal); R55 Syncope and collapse; E66.01 Morbid (severe) obesity due to excess calories; Z68.43 Body mass index [BMI] 50.0-59.9, adult; Z98.890 Other specified postprocedural states
CPT/HCPCS: 82947; 93005; 99284; A9270

== ENCOUNTER 2023-10-31 05:35 | Emergency (ER) | payer SELFPAY ==
[2023-10-31] MEDS ORDERED: Sodium Chloride 0.9% 1,000 ML IV ONE (05:50)
[2023-10-31] MEDS ORDERED: Ondansetron 4 MG/2 ML SDV IVPUSH ONE (05:50)
[2023-10-31] MEDS ORDERED: Ketorolac 30 MG/ML SDV IVPUSH ONE (05:50)
[2023-10-31] MEDS ORDERED: Sodium Chloride 0.9% 2.5 ML Syringe FLUSH PRN (05:50)
[2023-10-31] MEDS ORDERED: Sodium Chloride 0.9% 10 ML Syringe FLUSH PRN (05:50)
[2023-10-31] MEDS ORDERED: Famotidine 20 MG/2 ML SDV IVPUSH ONE (05:51)
[2023-10-31 06:16] LABS: BASOPHILS ABSOLUTE AUTO 0.06 K/uL (0.00-0.20); BASOPHILS PERCENT AUTO 0.5 % (0.0-1.0); EOSINOPHILS ABSOLUTE AUTO 0.05 K/uL (0.00-0.45); EOSINOPHILS PERCENT AUTO 0.4 % (0.0-6.0); HEMATOCRIT 47.8 % (42.0-52.0); HEMOGLOBIN 16.7 g/dL (14.0-18.0); IMMATURE GRAN ABSOLUTE AUTO 0.07 K/uL (0.00-0.05); IMMATURE GRAN PERCENT AUTO 0.6 % (0.0-0.4); LYMPHOCYTES ABSOLUTE AUTO 1.53 K/uL (1.00-4.80); LYMPHOCYTES PERCENT AUTO 12.3 % (24.0-44.0); MEAN CORPUSCULAR HEMOGLOBIN 30.5 pg (28.0-32.0); MEAN CORPUSCULAR HGB CONC 34.9 g/dL (32.0-36.0); MEAN CORPUSCULAR VOLUME 87.2 fL (83.0-99.0); MEAN PLATELET VOLUME 10.8 fL (9.4-12.4); MONOCYTES ABSOLUTE AUTO 1.04 K/uL (0.00-0.80); MONOCYTES PERCENT AUTO 8.4 % (0.0-8.0); NEUTROPHILS ABSOLUTE AUTO 9.66 K/uL (1.80-7.70); NEUTROPHILS PERCENT AUTO 77.8 % (41.0-71.0); PLATELET COUNT,PLT 233 K/uL (150-400); RED BLOOD CELL COUNT 5.48 M/uL (4.52-5.90); WHITE BLOOD CELL COUNT,WBC 12.41 K/uL (3.9-11.3)
[2023-10-31] MEDS ORDERED: Naloxone 0.4 MG/ML SDV IVPUSH PRN (06:29)
[2023-10-31] MEDS ORDERED: Morphine 2 MG/ML SYRINGE IVPUSH ONE (06:29)
[2023-10-31] MEDS ORDERED: Dicyclomine 10 MG Cap PO ONE (06:32)
[2023-10-31 06:53] LABS: ALBUMIN 4.2 g/dL (3.4-5.0); BILIRUBIN TOTAL 0.8 mg/dL (0.2-1.0); CALCIUM 9.6 mg/dL (8.5-10.1); CARBON DIOXIDE,CO2 21.4 mmol/L (21.0-32.0); CREATININE 1.1 mg/dL (0.8-1.3); EST CRCL DRUG DOSING (CG) 93.27 mL/min; POTASSIUM,K 4.4 mmol/L (3.5-5.1); PROTEIN TOTAL,TP 8.4 g/dL (6.4-8.2)
[2023-10-31] MEDS ORDERED: Morphine 4 MG/ML Syringe IVPUSH ONE ×3 (07:02→09:19)
[2023-10-31 07:15] LABS: APPEARANCE,URINE CLEAR; COLOR,URINE ORANGE; GLUCOSE,URINE NEGATIVE (NEGATIVE); KETONES,URINE 40 mg/dL (NEGATIVE); LEUKOCYTE ESTERASE,URINE NEGATIVE (NEGATIVE); NITRITE,URINE POSITIVE (NEGATIVE); OCCULT BLOOD,URINE NEGATIVE (NEGATIVE); PROTEIN,URINE 30 mg/dL (NEGATIVE)
[2023-10-31] MEDS ORDERED: Iopamidol 755 MG/ML 500 ML Multipack Bottle IVPUSH STA (07:30)
[2023-10-31 07:46] LABS: BILIRUBIN,URINE MODERATE (NEGATIVE)
[2023-10-31 07:48] LABS: BACTERIA,URINE MODERATE (NEGATIVE); EPITHELIAL CELLS,URINE FEW (NONE-FEW); RBC,URINE NONE SEEN (0-2/HPF)
[2023-10-31 10:00] VITALS: BP 139/85; PULSE 61
== END 2023-10-31 09:59 | disposition home or self-care (01) ==
LOC: MW.ED 05:35
DX: R10.9 Unspecified abdominal pain (principal); E66.9 Obesity, unspecified; Z68.43 Body mass index [BMI] 50.0-59.9, adult
CPT/HCPCS: 36415; 74177; 80053; 81001; 83690; 84484; 85025; 93005; 96361; 96374; 96375; 96376; 99284; A9270; J1885; J2270; J2405; J3490; J7030; Q9967

== ENCOUNTER 2024-09-04 19:27 | Emergency (ER) | payer SELFPAY ==
[2024-09-04] MEDS ORDERED: Sodium Chloride 0.9% 2.5 ML Syringe FLUSH PRN (19:44)
[2024-09-04] MEDS ORDERED: Sodium Chloride 0.9% 10 ML Syringe FLUSH PRN (19:44)
[2024-09-04 22:29] LABS: BASOPHILS ABSOLUTE AUTO 0.04 K/uL (0.00-0.20); BASOPHILS PERCENT AUTO 0.5 % (0.0-1.0); EOSINOPHILS ABSOLUTE AUTO 0.22 K/uL (0.00-0.45); EOSINOPHILS PERCENT AUTO 2.6 % (0.0-6.0); HEMATOCRIT 48.7 % (42.0-52.0); HEMOGLOBIN 16.6 g/dL (14.0-18.0); IMMATURE GRAN ABSOLUTE AUTO 0.02 K/uL (0.00-0.05); IMMATURE GRAN PERCENT AUTO 0.2 % (0.0-0.4); LYMPHOCYTES ABSOLUTE AUTO 2.71 K/uL (1.00-4.80); LYMPHOCYTES PERCENT AUTO 32.2 % (24.0-44.0); MEAN CORPUSCULAR HEMOGLOBIN 30.5 pg (28.0-32.0); MEAN CORPUSCULAR HGB CONC 34.1 g/dL (32.0-36.0); MEAN CORPUSCULAR VOLUME 89.5 fL (83.0-99.0); MONOCYTES ABSOLUTE AUTO 0.67 K/uL (0.00-0.80); NEUTROPHILS ABSOLUTE AUTO 4.75 K/uL (1.80-7.70); NEUTROPHILS PERCENT AUTO 56.5 % (41.0-71.0); PLATELET COUNT,PLT 226 K/uL (150-400); RED BLOOD CELL COUNT 5.44 M/uL (4.52-5.90); WHITE BLOOD CELL COUNT,WBC 8.41 K/uL (3.9-11.3)
[2024-09-04 23:04] LABS: A/G RATIO 1.1 (0.9-1.6); ALBUMIN 4.1 g/dL (3.4-5.0); BILIRUBIN TOTAL 0.6 mg/dL (0.2-1.0); CALCIUM 9.5 mg/dL (8.5-10.1); CARBON DIOXIDE,CO2 24.5 mmol/L (21.0-32.0); EST CRCL DRUG DOSING (CG) 105.07 mL/min; POTASSIUM,K 4.1 mmol/L (3.5-5.1); PROTEIN TOTAL,TP 7.7 g/dL (6.4-8.2)
[2024-09-04 23:42] VITALS: BP 159/106; PULSE 80
== END 2024-09-04 23:41 | disposition home or self-care (01) ==
LOC: MW.ED 19:27
DX: R07.9 Chest pain, unspecified (principal); I10 Essential (primary) hypertension; Z79.899 Other long term (current) drug therapy; E66.9 Obesity, unspecified; Z75.8 Other problems related to medical facilities and other health care; Z68.43 Body mass index [BMI] 50.0-59.9, adult
CPT/HCPCS: 36415; 71045; 71045-26; 80053; 84484; 85025; 93005; 93010; 99285